=== PATIENT | male | born 1975 | race African-American/Black ===

== ENCOUNTER 2019-01-18 21:38 | Inpatient (IN) ==
[2019-01-18] MEDS ORDERED: FUROSEMIDE 40 MG/4 ML VIAL IV STA (22:27)
[2019-01-18 22:47] LABS: Basophils % 0.2 % (0.0-0.8); Hematocrit 36.3 VOL% (42.0-52.0); Hemoglobin 11.2 GM/DL (14.0-18.0); Immature Granulocytes % 1.5 %; Immature Granulocytes Absolute 0.16 #; Lymphocytes # 1.9 10*3/uL (1.4-4.0); Lymphocytes % 17.6 % (21.2-54.2); Mean Corpuscular HGB Conc 30.9 GM/DL (32-36); Mean Corpuscular Hemoglobin 29 PG (27-34); Mean Corpuscular Volume 92.4 FL (87-102); Mean Platelet Volume 12.3 FL (9.6-12.0); Monocytes # 0.3 10*3/uL (0.11-0.8); Neutrophils # 8.4 10*3/uL (1.4-7.4); Neutrophils % 77.7 % (38.7-73.9); Platelet Count 103 T/CUMM (130-400); Red Blood Count 3.93 MC/CUMM (3.8-5.5); Red Cell Distribution Width 13.7 % (9.3-17.3); White Blood Count 10.9 T/CUMM (4-12)
[2019-01-18 22:52] LABS: Alanine Aminotransferase 169 U/L (16-61); Albumin 2.2 G/DL (3.4-5.0); Alkaline Phosphatase 105 U/L (45-117); Aspartate Amino Transferase 182 U/L (0-37); Blood Urea Nitrogen 30 MG/DL (7-18); Calcium 8.9 MG/DL (8.5-10.1); Glucose 334 MG/DL (74-106); INR 1.1; Osmolality,Calculated 304.8 MOS/KG (273-304); Potassium 3.5 MMOL/L (3.5-5.1); Sodium 144 MMOL/L (136-145); Total Protein 6.2 G/DL (6.4-8.3)
[2019-01-18 22:55] LABS: Troponin I 0.062 NG/ML (0.00-0.045)
[2019-01-18 22:55] LABS: ABG Base Excess -4.1 MMOL/L (-2.5-2.5); ABG HCO3 20.9 MMOL/L (20-26); ABG Oxygen Saturation 89.7 % (95-100); ABG PCO2 53.3 MM HG (35-48); ABG PH 7.259 (7.35-7.45); ABG PO2 69.4 MM HG (80-95); ABG TCO2 21.3 MMOL/L (23-27); Allen Test Positive; Pt O2 Delivery Device Ventilator
[2019-01-18] MEDS ORDERED: PHENYLEPHRINE DRIP 40 MG/250 ML PREMIX IV ONE (23:07)
[2019-01-18] MEDS ORDERED: VECURONIUM 10 MG VIAL IV ONE (23:13)
[2019-01-18] MEDS ORDERED: ETOMIDATE 20 MG/10 ML VIAL IV ONE (23:13)
[2019-01-18] MEDS ORDERED: PHENYLEPHRINE DRIP 40 MG/250 ML PREMIX IV PRN (23:13)
[2019-01-18] MEDS ORDERED: FUROSEMIDE 100 MG/10 ML VIAL ONE (23:15)
[2019-01-18] MEDS ORDERED: ROCURONIUM 100 MG/10 ML VIAL IV ONE (23:18)
[2019-01-18] MEDS ORDERED: HEPARIN 1,000 UNIT/1 ML VIAL IV STA (23:30)
[2019-01-18] MEDS ORDERED: HEPARIN 5,000 UNIT/1 ML VIAL ONE (23:31)
[2019-01-18] MEDS ORDERED: VECURONIUM 10 MG VIAL IV STA (23:50)
[2019-01-19] MEDS ORDERED: ONDANSETRON 4 MG/2 ML VIAL IV PRN (00:10)
[2019-01-19] MEDS ORDERED: NOREPINEPHRINE 4 MG/4 ML VIAL IV ONE (00:19)
[2019-01-19] MEDS ORDERED: NOREPINEPHRINE 8 MG in SODIUM CHLORIDE 0.9% 242 ML IV PRN (00:25)
[2019-01-19] MEDS ORDERED: HEPARIN DRIP 25,000 UNITS/500 ML PREMIX IV SCH (00:30)
[2019-01-19] MEDS ORDERED: EPINEPHrine 1 MG/ML VIAL ONE (00:58)
[2019-01-19] MEDS: PROPOFOL 1,000 MG/100 ML BOTTLE IV SCH ×2 (03:05→14:11)
[2019-01-19] MEDS: fentaNYL INJ 1,250 MCG in SODIUM CHLORIDE 0.9% 225 ML IV PRN ×2 (03:05→16:19)
[2019-01-19] MEDS: CISATRACURIUM 200 MG in SODIUM CHLORIDE 0.9% 180 ML IV SCH (03:05)
[2019-01-19 03:20] LABS: Basophils % 0.2 % (0.0-0.8); Hemoglobin 13.4 GM/DL (14.0-18.0); Immature Granulocytes % 1.1 %; Immature Granulocytes Absolute 0.19 #; Lymphocytes # 1.2 10*3/uL (1.4-4.0); Lymphocytes % 7.1 % (21.2-54.2); Mean Corpuscular HGB Conc 30.5 GM/DL (32-36); Mean Corpuscular Hemoglobin 28 PG (27-34); Mean Corpuscular Volume 92.4 FL (87-102); Monocytes # 1.1 10*3/uL (0.11-0.8); Monocytes % 6.3 % (1.7-12.7); Neutrophils # 14.8 10*3/uL (1.4-7.4); Neutrophils % 85.3 % (38.7-73.9); Platelet Count 140 T/CUMM (130-400); Red Blood Count 4.76 MC/CUMM (3.8-5.5); White Blood Count 17.4 T/CUMM (4-12)
[2019-01-19 03:22] LABS: ABG Base Excess -4.6 MMOL/L (-2.5-2.5); ABG HCO3 20.5 MMOL/L (20-26); ABG Oxygen Saturation 87.5 % (95-100); ABG PCO2 52.3 MM HG (35-48); ABG PH 7.258 (7.35-7.45); ABG PO2 63.5 MM HG (80-95); ABG TCO2 20.8 MMOL/L (23-27); Allen Test Positive; Pt O2 Delivery Device Ventilator
[2019-01-19 03:30] LABS: INR 1.1; PT Patient Result 11.9 SECS; Partial Thromboplastin Time 29.2 SECS (0-40)
[2019-01-19 03:42] LABS: Amylase 159 U/L (25-115)
[2019-01-19 03:44] LABS: ABG Base Excess -4.7 MMOL/L (-2.5-2.5); ABG HCO3 20.6 MMOL/L (20-26); ABG Oxygen Saturation 97.5 % (95-100); ABG PCO2 46.9 MM HG (35-48); ABG PH 7.285 (7.35-7.45); ABG TCO2 19.8 MMOL/L (23-27)
[2019-01-19 03:48] LABS: Troponin I 0.722 NG/ML (0.00-0.045)
[2019-01-19 03:49] LABS: Albumin 2.7 G/DL (3.4-5.0); Osmolality,Calculated 298.7 MOS/KG (273-304); Thyroid Stimulating Hormone 1.33 uIU/ml (0.358-3.74); Total Protein 7.3 G/DL (6.4-8.3)
[2019-01-19] MEDS ORDERED: INSULIN REGULAR 100 UNIT/ML IV ONE (03:59)
[2019-01-19] MEDS ORDERED: SODIUM BICARBONATE 50 MEQ/50 ML VIAL IV ONE (03:59)
[2019-01-19] MEDS ORDERED: DEXTROSE 50% 25 GM/50 ML SYRINGE IV PRN (04:00)
[2019-01-19] MEDS ORDERED: CALCIUM GLUCONATE 1,000 MG in SODIUM CHLORIDE 0.9% 100 ML IV ONE (04:00)
[2019-01-19] MEDS ORDERED: DEXTROSE 50% 25 GM/50 ML SYRINGE IV ONE (04:14)
[2019-01-19] MEDS ORDERED: SODIUM CHLORIDE 0.9% 1,000 ML IV ONE (05:15)
[2019-01-19 05:52] LABS: ABG Base Excess -1.7 MMOL/L (-2.5-2.5); ABG Oxygen Saturation 98.7 % (95-100); ABG PCO2 50.1 MM HG (35-48); ABG PH 7.311 (7.35-7.45); ABG TCO2 22.4 MMOL/L (23-27)
[2019-01-19 05:55] LABS: INR 1.1; Partial Thromboplastin Time 27.2 SECS (0-40)
[2019-01-19 06:17] LABS: Barbiturates Screen,Urine Negative (Negative); Benzodiazepines Screen,Urine Negative (Negative); Cannabinoid Screen,Urine Negative (Negative); Opiate Screen,Urine Negative (Negative); Phencyclidine Screen,Urine Negative (Negative)
[2019-01-19 06:18] LABS: Apearance,Urine CLOUDY (Clear); Bilirubin,Urine Negative (Negative); Blood, Urine Moderate mg/dL (Negative); Glucose,Urine (UA) >=500 mg/dL (Negative); Granular Casts,Urine 5 /LPF (0-1); Hyaline Casts,Urine 16 /LPF (0-3); Ketones,Urine Negative (Negative); Mucus,Urine Occasional /LPF (Occasional); Nitrite,Urine Negative (Negative); Protein,Urine 100 MG/DL; RBC,Urine 13 /HPF (0-4); Squamous Epithelial Cell,Urine Occasional /HPF (0-10); Urine Color Yellow (Yellow); Urine Specific Gravity 1.015 (1.001-1.035); WBC,Urine 26 /HPF (0-6)
[2019-01-19] MEDS: INSULIN REGULAR 100 UNIT/ML IV SCH ×3 (06:25→18:40)
[2019-01-19] MEDS ORDERED: SODIUM CHLORIDE 0.9% 1,000 ML IV SCH (06:30)
[2019-01-19] MEDS ORDERED: INSULIN REGULAR DRIP 100 ML IV PRN (07:13)
[2019-01-19] MEDS: MINERAL OIL/PETROLATUM OPH OINT 3.5 GM TUBE BOTH EYES SCH ×3 (09:41→21:27)
[2019-01-19] MEDS: PANTOPRAZOLE 40 MG VIAL IV SCH (09:45)
[2019-01-19 09:46] LABS: Basophils # 0.1 10*3/uL (0.0-0.2); Basophils % 0.3 % (0.0-0.8); Hematocrit 38.6 VOL% (42.0-52.0); Hemoglobin 12.1 GM/DL (14.0-18.0); Immature Granulocytes % 0.7 %; Immature Granulocytes Absolute 0.11 #; Lymphocytes # 1.3 10*3/uL (1.4-4.0); Lymphocytes % 7.9 % (21.2-54.2); Mean Corpuscular HGB Conc 31.3 GM/DL (32-36); Mean Corpuscular Hemoglobin 28 PG (27-34); Mean Corpuscular Volume 89.4 FL (87-102); Mean Platelet Volume 13.1 FL (9.6-12.0); Monocytes # 1.1 10*3/uL (0.11-0.8); Monocytes % 6.5 % (1.7-12.7); Neutrophils # 13.6 10*3/uL (1.4-7.4); Neutrophils % 84.6 % (38.7-73.9); Platelet Count 117 T/CUMM (130-400); Red Blood Count 4.32 MC/CUMM (3.8-5.5); White Blood Count 16.1 T/CUMM (4-12)
[2019-01-19 09:55] LABS: INR 1.1; PT Patient Result 11.8 SECS; Partial Thromboplastin Time 25.5 SECS (0-40)
[2019-01-19 10:14] LABS: CKMB % 3.1 %; Calcium 8.1 MG/DL (8.5-10.1); Osmolality,Calculated 307.3 MOS/KG (273-304)
[2019-01-19 10:19] LABS: Troponin I 1.57 NG/ML (0.00-0.045)
[2019-01-19] MEDS: SODIUM BICARB INJ 150 MEQ in STERILE WATER INJ 850 ML IV SCH ×2 (13:42→22:02)
[2019-01-19 15:22] LABS: Basophils % 0.1 % (0.0-0.8); Hematocrit 37.8 VOL% (42.0-52.0); Hemoglobin 12.2 GM/DL (14.0-18.0); Immature Granulocytes % 0.6 %; Immature Granulocytes Absolute 0.09 #; Lymphocytes # 1.2 10*3/uL (1.4-4.0); Lymphocytes % 7.8 % (21.2-54.2); Mean Corpuscular HGB Conc 32.3 GM/DL (32-36); Mean Corpuscular Hemoglobin 28 PG (27-34); Mean Corpuscular Volume 87.5 FL (87-102); Mean Platelet Volume 13.1 FL (9.6-12.0); Monocytes # 0.6 10*3/uL (0.11-0.8); Monocytes % 3.7 % (1.7-12.7); Neutrophils # 13.3 10*3/uL (1.4-7.4); Neutrophils % 87.8 % (38.7-73.9); Platelet Count 111 T/CUMM (130-400); Red Blood Count 4.32 MC/CUMM (3.8-5.5); White Blood Count 15.1 T/CUMM (4-12)
[2019-01-19 15:32] LABS: INR 1.1; PT Patient Result 11.7 SECS; Partial Thromboplastin Time 25.1 SECS (0-40)
[2019-01-19 15:45] LABS: Blood Urea Nitrogen 43 MG/DL (7-18); CKMB % 3.9 %; Calcium 8.4 MG/DL (8.5-10.1); Glucose 291 MG/DL (74-106); Osmolality,Calculated 304.1 MOS/KG (273-304); Potassium 3.5 MMOL/L (3.5-5.1); Sodium 142 MMOL/L (136-145)
[2019-01-19] MEDS ORDERED: POTASSIUM CHLORIDE RIDER 20 MEQ in PREMIX 1 EACH IV ONE (16:21)
[2019-01-19] MEDS ORDERED: ENOXAPARIN 30 MG/0.3 ML SYRINGE SUBCUT SCH (16:30)
[2019-01-19] MEDS: miSOPROStol 200 MCG TABLET PO SCH ×2 (16:44→21:26)
[2019-01-19] MEDS: MEROPENEM 1,000 MG in SODIUM CHLORIDE 0.9% 100 ML IV SCH (17:02)
[2019-01-19] MEDS ORDERED: hydrALAZINE 20 MG/1 ML VIAL IV ONE (20:39)
[2019-01-19] MEDS ORDERED: LORazepam 2 MG/1 ML VIAL IV PRN (20:40)
[2019-01-19 21:31] LABS: Basophils % 0.1 % (0.0-0.8); Hematocrit 38.7 VOL% (42.0-52.0); Hemoglobin 12.3 GM/DL (14.0-18.0); Immature Granulocytes % 0.4 %; Immature Granulocytes Absolute 0.05 #; Lymphocytes % 8.2 % (21.2-54.2); Mean Corpuscular HGB Conc 31.8 GM/DL (32-36); Mean Corpuscular Hemoglobin 28 PG (27-34); Mean Platelet Volume 12.8 FL (9.6-12.0); Monocytes # 0.4 10*3/uL (0.11-0.8); Monocytes % 3.6 % (1.7-12.7); Neutrophils # 10.6 10*3/uL (1.4-7.4); Neutrophils % 87.7 % (38.7-73.9); Platelet Count 128 T/CUMM (130-400); Red Cell Distribution Width 14.1 % (9.3-17.3); White Blood Count 12.1 T/CUMM (4-12)
[2019-01-19 21:39] LABS: INR 1.1; PT Patient Result 12.3 SECS; Partial Thromboplastin Time 28.2 SECS (0-40)
[2019-01-19 21:52] LABS: Blood Urea Nitrogen 43 MG/DL (7-18); CKMB % 4.5 %; Calcium 8.8 MG/DL (8.5-10.1); Glucose 97 MG/DL (74-106); Osmolality,Calculated 296.8 MOS/KG (273-304); Sodium 144 MMOL/L (136-145)
[2019-01-20 02:11] LABS: Basophils % 0.2 % (0.0-0.8); Hematocrit 39.9 VOL% (42.0-52.0); Hemoglobin 12.8 GM/DL (14.0-18.0); Immature Granulocytes % 0.4 %; Immature Granulocytes Absolute 0.06 #; Lymphocytes # 1.2 10*3/uL (1.4-4.0); Lymphocytes % 8.4 % (21.2-54.2); Mean Corpuscular HGB Conc 32.1 GM/DL (32-36); Mean Corpuscular Hemoglobin 28 PG (27-34); Mean Corpuscular Volume 87.5 FL (87-102); Mean Platelet Volume 12.8 FL (9.6-12.0); Monocytes # 0.8 10*3/uL (0.11-0.8); Neutrophils # 11.7 10*3/uL (1.4-7.4); Platelet Count 130 T/CUMM (130-400); Red Blood Count 4.56 MC/CUMM (3.8-5.5); Red Cell Distribution Width 14.1 % (9.3-17.3); White Blood Count 13.8 T/CUMM (4-12)
[2019-01-20 02:31] LABS: CKMB % 4.4 %; Calcium 8.6 MG/DL (8.5-10.1); Osmolality,Calculated 298.7 MOS/KG (273-304); Potassium 3.2 MMOL/L (3.5-5.1)
[2019-01-20 02:33] LABS: Troponin I 1.36 NG/ML (0.00-0.045)
[2019-01-20] MEDS ORDERED: SODIUM CHLORIDE 0.9% 1,000 ML IV ONE (02:43)
[2019-01-20] MEDS: PROPOFOL 1,000 MG/100 ML BOTTLE IV SCH ×2 (02:55→06:12)
[2019-01-20] MEDS: CISATRACURIUM 200 MG in SODIUM CHLORIDE 0.9% 180 ML IV SCH (02:56)
[2019-01-20] MEDS: fentaNYL INJ 1,250 MCG in SODIUM CHLORIDE 0.9% 225 ML IV PRN (03:30)
[2019-01-20 03:55] LABS: ABG Base Excess 7.2 MMOL/L (-2.5-2.5); ABG Oxygen Saturation 99.8 % (95-100); ABG PCO2 42.2 MM HG (35-48); ABG TCO2 27.5 MMOL/L (23-27)
[2019-01-20 04:22] LABS: INR 1.2; PT Patient Result 12.5 SECS; Partial Thromboplastin Time 27.9 SECS (0-40)
[2019-01-20 04:33] LABS: % Iron Saturation 9.7 % (18-50); Uric Acid 10.7 MG/DL (3.5-7.2)
[2019-01-20] MEDS: MEROPENEM 1,000 MG in SODIUM CHLORIDE 0.9% 100 ML IV SCH ×2 (05:23→16:29)
[2019-01-20 06:11] LABS: Parathyroid Hormone Intact 751.2 PG/ML (18.4-80.1)
[2019-01-20] MEDS: SODIUM BICARB INJ 150 MEQ in STERILE WATER INJ 850 ML IV SCH (06:12)
[2019-01-20] MEDS: PANTOPRAZOLE 40 MG VIAL IV SCH (08:41)
[2019-01-20] MEDS: STERILE WATER IV SCH ×2 (08:42→16:40)
[2019-01-20] MEDS: POTASSIUM CHLORIDE IV SCH ×2 (08:42→16:40)
[2019-01-20] MEDS: MINERAL OIL/PETROLATUM OPH OINT 3.5 GM TUBE BOTH EYES SCH ×2 (08:42→16:30)
[2019-01-20] MEDS: SODIUM BICARB IV SCH ×2 (08:42→16:40)
[2019-01-20] MEDS: ALLOPURINOL 300 MG TABLET PO SCH (08:42)
[2019-01-20] MEDS: IRON SUCROSE 200 MG in SODIUM CHLORIDE 0.9% 100 ML IV SCH (08:43)
[2019-01-20 12:34] LABS: Basophils % 0.1 % (0.0-0.8); Hematocrit 39.9 VOL% (42.0-52.0); Hemoglobin 12.7 GM/DL (14.0-18.0); Immature Granulocytes % 0.8 %; Immature Granulocytes Absolute 0.12 #; Lymphocytes # 0.7 10*3/uL (1.4-4.0); Lymphocytes % 5.2 % (21.2-54.2); Mean Corpuscular HGB Conc 31.8 GM/DL (32-36); Mean Corpuscular Hemoglobin 28 PG (27-34); Mean Corpuscular Volume 88.9 FL (87-102); Mean Platelet Volume 13.2 FL (9.6-12.0); Monocytes # 0.8 10*3/uL (0.11-0.8); Monocytes % 5.6 % (1.7-12.7); Neutrophils # 12.6 10*3/uL (1.4-7.4); Neutrophils % 88.3 % (38.7-73.9); Platelet Count 133 T/CUMM (130-400); Red Blood Count 4.49 MC/CUMM (3.8-5.5); Red Cell Distribution Width 14.3 % (9.3-17.3); White Blood Count 14.3 T/CUMM (4-12)
[2019-01-20 12:44] LABS: INR 1.1; Partial Thromboplastin Time 27.5 SECS (0-40)
[2019-01-20] MEDS: INSULIN LISPRO 100 UNIT/ML SUBCUT SCH ×3 (12:56→21:40)
[2019-01-20 13:00] LABS: Blood Urea Nitrogen 50 MG/DL (7-18); CKMB % 3.1 %; Calcium 7.9 MG/DL (8.5-10.1); Glucose 206 MG/DL (74-106); Osmolality,Calculated 301.1 MOS/KG (273-304); Potassium 3.8 MMOL/L (3.5-5.1); Sodium 142 MMOL/L (136-145)
[2019-01-20 13:01] LABS: Troponin I 0.926 NG/ML (0.00-0.045)
[2019-01-20 16:00] LABS: INR 1.1; PT Patient Result 11.9 SECS; Partial Thromboplastin Time 26.9 SECS (0-40)
[2019-01-20] MEDS: INSULIN NPH/REGULAR 70/30 100 UNIT/ML SUBCUT SCH (16:27)
[2019-01-20] MEDS: ENOXAPARIN 40 MG/0.4 ML SYRINGE SUBCUT SCH (16:29)
[2019-01-20] MEDS: miSOPROStol 200 MCG TABLET PO SCH (19:09)
[2019-01-21] MEDS: INSULIN LISPRO 100 UNIT/ML SUBCUT SCH ×6 (00:34→21:08)
[2019-01-21 00:45] LABS: INR 1.1
[2019-01-21] MEDS: POTASSIUM CHLORIDE IV SCH ×2 (01:01→12:38)
[2019-01-21] MEDS: SODIUM BICARB IV SCH ×2 (01:01→12:38)
[2019-01-21] MEDS: STERILE WATER IV SCH ×2 (01:01→12:38)
[2019-01-21] MEDS: CISATRACURIUM 200 MG in SODIUM CHLORIDE 0.9% 180 ML IV SCH (02:38)
[2019-01-21 05:11] LABS: Basophils % 0.2 % (0.0-0.8); Hematocrit 37.3 VOL% (42.0-52.0); Hemoglobin 11.6 GM/DL (14.0-18.0); Immature Granulocytes % 0.4 %; Immature Granulocytes Absolute 0.05 #; Lymphocytes # 1.7 10*3/uL (1.4-4.0); Lymphocytes % 13.7 % (21.2-54.2); Mean Corpuscular HGB Conc 31.1 GM/DL (32-36); Mean Corpuscular Hemoglobin 28 PG (27-34); Mean Corpuscular Volume 90.8 FL (87-102); Mean Platelet Volume 13.4 FL (9.6-12.0); Monocytes # 1.3 10*3/uL (0.11-0.8); Monocytes % 9.9 % (1.7-12.7); Neutrophils # 9.6 10*3/uL (1.4-7.4); Neutrophils % 75.8 % (38.7-73.9); Platelet Count 144 T/CUMM (130-400); Red Blood Count 4.11 MC/CUMM (3.8-5.5); Red Cell Distribution Width 14.6 % (9.3-17.3); White Blood Count 12.6 T/CUMM (4-12)
[2019-01-21 05:26] LABS: Calcium 7.2 MG/DL (8.5-10.1); Osmolality,Calculated 302.7 MOS/KG (273-304); Potassium 4.1 MMOL/L (3.5-5.1)
[2019-01-21] MEDS: MEROPENEM 1,000 MG in SODIUM CHLORIDE 0.9% 100 ML IV SCH ×2 (06:33→17:05)
[2019-01-21] MEDS: INSULIN NPH/REGULAR 70/30 100 UNIT/ML SUBCUT SCH ×2 (07:55→17:02)
[2019-01-21] MEDS: PANTOPRAZOLE 40 MG VIAL IV SCH (08:17)
[2019-01-21] MEDS: CALCITRIOL 0.5 MCG CAPSULE PO SCH (08:18)
[2019-01-21] MEDS: ALLOPURINOL 300 MG TABLET PO SCH (08:18)
[2019-01-21] MEDS: SODIUM CHLORIDE 0.45% 1,000 ML IV SCH ×2 (08:26→18:49)
[2019-01-21] MEDS: IRON SUCROSE 200 MG in SODIUM CHLORIDE 0.9% 100 ML IV SCH (08:40)
[2019-01-21] MEDS: CARVEDILOL 6.25 MG TABLET PO SCH ×2 (08:48→21:08)
[2019-01-21] MEDS ORDERED: MAGNESIUM SULF RIDER 1 GM in PREMIX 1 EACH IV ONE (09:00)
[2019-01-21] MEDS ORDERED: MAGNESIUM SULF RIDER 2 GM in PREMIX 1 EACH IV ONE (09:03)
[2019-01-21] MEDS: PANTOPRAZOLE 40 MG TABLET PO SCH (09:27)
[2019-01-21] MEDS: ENOXAPARIN 40 MG/0.4 ML SYRINGE SUBCUT SCH (17:05)
[2019-01-22 04:47] LABS: Basophils % 0.4 % (0.0-0.8); Eosinophils % 0.3 % (0.00-10.9); Hematocrit 34.3 VOL% (42.0-52.0); Hemoglobin 10.5 GM/DL (14.0-18.0); Immature Granulocytes % 0.4 %; Immature Granulocytes Absolute 0.03 #; Lymphocytes # 1.6 10*3/uL (1.4-4.0); Lymphocytes % 21.1 % (21.2-54.2); Mean Corpuscular HGB Conc 30.6 GM/DL (32-36); Mean Corpuscular Hemoglobin 28 PG (27-34); Mean Corpuscular Volume 92.7 FL (87-102); Mean Platelet Volume 13.6 FL (9.6-12.0); Monocytes # 0.9 10*3/uL (0.11-0.8); Monocytes % 12.2 % (1.7-12.7); Neutrophils % 65.6 % (38.7-73.9); Red Cell Distribution Width 14.3 % (9.3-17.3); White Blood Count 7.6 T/CUMM (4-12)
[2019-01-22] MEDS: MEROPENEM 1,000 MG in SODIUM CHLORIDE 0.9% 100 ML IV SCH ×2 (04:58→17:08)
[2019-01-22 05:09] LABS: Platelet Count 102 T/CUMM (130-400)
[2019-01-22 05:11] LABS: Albumin 2.4 G/DL (3.4-5.0); Bilirubin,Total 0.6 MG/DL (0.2-1.0); Calcium 7.1 MG/DL (8.5-10.1); Osmolality,Calculated 293.1 MOS/KG (273-304); Potassium 3.9 MMOL/L (3.5-5.1); Total Protein 6.3 G/DL (6.4-8.3)
[2019-01-22 06:01] LABS: Hypochromasia 1+; Platelet Estimate Decreased
[2019-01-22] MEDS: INSULIN NPH/REGULAR 70/30 100 UNIT/ML SUBCUT SCH ×2 (08:42→17:04)
[2019-01-22] MEDS: CALCITRIOL 0.5 MCG CAPSULE PO SCH (08:45)
[2019-01-22] MEDS: CARVEDILOL 6.25 MG TABLET PO SCH ×2 (08:45→21:31)
[2019-01-22] MEDS: PANTOPRAZOLE 40 MG TABLET PO SCH (08:45)
[2019-01-22] MEDS: INSULIN LISPRO 100 UNIT/ML SUBCUT SCH ×4 (08:46→21:32)
[2019-01-22] MEDS: SODIUM CHLORIDE 0.45% 1,000 ML IV SCH (08:47)
[2019-01-22] MEDS: IRON SUCROSE 200 MG in SODIUM CHLORIDE 0.9% 100 ML IV SCH (09:53)
[2019-01-22] MEDS: ALLOPURINOL 300 MG TABLET PO SCH (09:53)
[2019-01-22] MEDS ORDERED: FUROSEMIDE 40 MG/4 ML VIAL IV ONE (10:48)
[2019-01-22] MEDS ORDERED: MAGNESIUM SULF RIDER 2 GM in PREMIX 1 EACH IV PRN (14:40)
[2019-01-22] MEDS ORDERED: POTASSIUM CHLORIDE RIDER 10 MEQ in PREMIX 1 EACH IV PRN (14:40)
[2019-01-22] MEDS: ENOXAPARIN 40 MG/0.4 ML SYRINGE SUBCUT SCH (17:03)
[2019-01-23] MEDS: SODIUM CHLORIDE 0.45% 1,000 ML IV SCH ×3 (02:27→19:10)
[2019-01-23] MEDS: MEROPENEM 1,000 MG in SODIUM CHLORIDE 0.9% 100 ML IV SCH (04:51)
[2019-01-23 06:12] LABS: Calcium 7.6 MG/DL (8.5-10.1); Osmolality,Calculated 292.8 MOS/KG (273-304); Potassium 3.8 MMOL/L (3.5-5.1)
[2019-01-23] MEDS: CARVEDILOL 6.25 MG TABLET PO SCH ×3 (07:45→21:06)
[2019-01-23] MEDS: PANTOPRAZOLE 40 MG TABLET PO SCH ×2 (07:46→09:57)
[2019-01-23] MEDS: INSULIN NPH/REGULAR 70/30 100 UNIT/ML SUBCUT SCH ×2 (07:47→16:34)
[2019-01-23] MEDS: INSULIN LISPRO 100 UNIT/ML SUBCUT SCH ×4 (07:47→21:06)
[2019-01-23] MEDS ORDERED: HEPARIN/NACL 0.9% 2 UNITS/ML 1,000 ML IV ONE (07:48)
[2019-01-23] MEDS ORDERED: diphenhydrAMINE CAP 25 MG CAPSULE PO ONE (08:00)
[2019-01-23] MEDS ORDERED: DIAZEPAM 5 MG TABLET PO ONE (08:00)
[2019-01-23] MEDS: ASPIRIN EC 81 MG TABLET PO SCH (08:01)
[2019-01-23 08:13] LABS: Basophils % 0.5 % (0.0-0.8); Eosinophils # 0.1 10*3/uL (0.0-0.87); Eosinophils % 1.6 % (0.00-10.9); Hematocrit 35.9 VOL% (42.0-52.0); Hemoglobin 10.9 GM/DL (14.0-18.0); Immature Granulocytes % 0.5 %; Immature Granulocytes Absolute 0.04 #; Lymphocytes # 1.6 10*3/uL (1.4-4.0); Lymphocytes % 19.3 % (21.2-54.2); Mean Corpuscular HGB Conc 30.4 GM/DL (32-36); Mean Corpuscular Hemoglobin 28 PG (27-34); Mean Corpuscular Volume 93.2 FL (87-102); Monocytes # 0.9 10*3/uL (0.11-0.8); Monocytes % 11.2 % (1.7-12.7); Neutrophils # 5.4 10*3/uL (1.4-7.4); Neutrophils % 66.9 % (38.7-73.9); Platelet Count 103 T/CUMM (130-400); Red Blood Count 3.85 MC/CUMM (3.8-5.5); Red Cell Distribution Width 13.8 % (9.3-17.3)
[2019-01-23] MEDS ORDERED: LIDOCAINE 1% 20 ML VIAL ONE (08:24)
[2019-01-23] MEDS ORDERED: MIDAZOLAM 2 MG/2 ML VIAL ONE (08:25)
[2019-01-23] MEDS ORDERED: LIDOCAINE 1%/EPI INJ 20 ML VIAL ONE (08:25)
[2019-01-23] MEDS ORDERED: fentaNYL 100 MCG/2 ML VIAL ONE (08:25)
[2019-01-23] MEDS ORDERED: ASPIRIN EC 81 MG TABLET PO SCH (09:00)
[2019-01-23] MEDS ORDERED: ADENOSINE 90 MG/30 ML VIAL IV ONE (09:01)
[2019-01-23] MEDS ORDERED: ENOXAPARIN 60 MG/0.6 ML SYRINGE ONE (09:05)
[2019-01-23] MEDS: CALCITRIOL 0.5 MCG CAPSULE PO SCH (09:56)
[2019-01-23] MEDS: ALLOPURINOL 300 MG TABLET PO SCH (09:57)
[2019-01-23] MEDS: FUROSEMIDE 40 MG/4 ML VIAL IV SCH (11:02)
[2019-01-23] MEDS: IRON SUCROSE 200 MG in SODIUM CHLORIDE 0.9% 100 ML IV SCH (11:06)
[2019-01-23] MEDS: cefTRIAXone 2,000 MG in SYRINGE 1 EACH IV SCH (11:40)
[2019-01-23] MEDS: ENOXAPARIN 40 MG/0.4 ML SYRINGE SUBCUT SCH (16:35)
[2019-01-23] MEDS: ATORVASTATIN 80 MG TABLET PO SCH (21:06)
[2019-01-24] MEDS: SODIUM CHLORIDE 0.45% 1,000 ML IV SCH ×2 (03:00→14:36)
[2019-01-24 04:25] LABS: Basophils # 0.1 10*3/uL (0.0-0.2); Basophils % 0.6 % (0.0-0.8); Eosinophils # 0.2 10*3/uL (0.0-0.87); Eosinophils % 2.3 % (0.00-10.9); Hematocrit 36.9 VOL% (42.0-52.0); Hemoglobin 11.4 GM/DL (14.0-18.0); Immature Granulocytes % 0.4 %; Immature Granulocytes Absolute 0.03 #; Lymphocytes # 1.8 10*3/uL (1.4-4.0); Lymphocytes % 22.5 % (21.2-54.2); Mean Corpuscular HGB Conc 30.9 GM/DL (32-36); Mean Corpuscular Hemoglobin 28 PG (27-34); Mean Platelet Volume 12.9 FL (9.6-12.0); Monocytes # 0.8 10*3/uL (0.11-0.8); Monocytes % 10.3 % (1.7-12.7); Neutrophils # 5.1 10*3/uL (1.4-7.4); Neutrophils % 63.9 % (38.7-73.9); Platelet Count 119 T/CUMM (130-400); Red Blood Count 4.01 MC/CUMM (3.8-5.5); Red Cell Distribution Width 13.5 % (9.3-17.3)
[2019-01-24 04:52] LABS: Calcium 8.2 MG/DL (8.5-10.1); Osmolality,Calculated 289.4 MOS/KG (273-304); Potassium 4.8 MMOL/L (3.5-5.1)
[2019-01-24] MEDS: CALCITRIOL 0.5 MCG CAPSULE PO SCH (08:32)
[2019-01-24] MEDS: PANTOPRAZOLE 40 MG TABLET PO SCH (08:33)
[2019-01-24] MEDS: CARVEDILOL 6.25 MG TABLET PO SCH ×2 (08:33→17:03)
[2019-01-24] MEDS: LOSARTAN 25 MG TABLET PO SCH (08:33)
[2019-01-24] MEDS: ALLOPURINOL 300 MG TABLET PO SCH (08:33)
[2019-01-24] MEDS: ASPIRIN EC 81 MG TABLET PO SCH (08:34)
[2019-01-24] MEDS: INSULIN NPH/REGULAR 70/30 100 UNIT/ML SUBCUT SCH ×2 (08:35→16:55)
[2019-01-24] MEDS: INSULIN LISPRO 100 UNIT/ML SUBCUT SCH ×4 (08:36→21:13)
[2019-01-24] MEDS: FUROSEMIDE 40 MG/4 ML VIAL IV SCH (08:37)
[2019-01-24] MEDS: IRON SUCROSE 200 MG in SODIUM CHLORIDE 0.9% 100 ML IV SCH (08:45)
[2019-01-24] MEDS ORDERED: CARVEDILOL 6.25 MG TABLET PO SCH (11:12)
[2019-01-24] MEDS ORDERED: NITROGLYCERIN SL 0.4 MG TABLET SL PRN (11:12)
[2019-01-24] MEDS: cefTRIAXone 2,000 MG in SYRINGE 1 EACH IV SCH (11:15)
[2019-01-24] MEDS: ENOXAPARIN 40 MG/0.4 ML SYRINGE SUBCUT SCH (16:56)
[2019-01-24] MEDS: ATORVASTATIN 80 MG TABLET PO SCH (21:13)
[2019-01-25 05:07] LABS: Basophils % 0.6 % (0.0-0.8); Eosinophils # 0.2 10*3/uL (0.0-0.87); Eosinophils % 2.6 % (0.00-10.9); Hematocrit 36.4 VOL% (42.0-52.0); Hemoglobin 11.5 GM/DL (14.0-18.0); Immature Granulocytes % 0.3 %; Immature Granulocytes Absolute 0.02 #; Lymphocytes # 1.8 10*3/uL (1.4-4.0); Lymphocytes % 27.5 % (21.2-54.2); Mean Corpuscular HGB Conc 31.6 GM/DL (32-36); Mean Corpuscular Hemoglobin 29 PG (27-34); Mean Corpuscular Volume 90.1 FL (87-102); Mean Platelet Volume 12.2 FL (9.6-12.0); Neutrophils # 3.4 10*3/uL (1.4-7.4); Platelet Count 68 T/CUMM (130-400); Red Blood Count 4.04 MC/CUMM (3.8-5.5); Red Cell Distribution Width 13.3 % (9.3-17.3); White Blood Count 6.5 T/CUMM (4-12)
[2019-01-25 05:31] LABS: Calcium 8.6 MG/DL (8.5-10.1); Osmolality,Calculated 286.5 MOS/KG (273-304); Potassium 4.1 MMOL/L (3.5-5.1)
[2019-01-25 05:38] LABS: Eosinophils 1 % (0-10); Hypochromasia 1+; Lymphocytes 21 % (20-55); Segmented Neutrophils 65 % (50-85); Total Cells Counted 100
[2019-01-25] MEDS ORDERED: DEXTROSE 50% 25 GM/50 ML VIAL IV PRN (06:23)
[2019-01-25] MEDS ORDERED: GLUCAGON 1 MG VIAL IM PRN (06:23)
[2019-01-25 06:52] LABS: ABG Base Excess 3.4 MMOL/L (-2.5-2.5); ABG HCO3 27.4 MMOL/L (20-26); ABG Oxygen Saturation 97.4 % (95-100); ABG PCO2 49.7 MM HG (35-48); ABG PH 7.381 (7.35-7.45); ABG PO2 95.5 MM HG (80-95); ABG TCO2 26.2 MMOL/L (23-27); Allen Test Positive; Pt O2 Delivery Device Room Air
[2019-01-25] MEDS ORDERED: CARVEDILOL 12.5 MG TABLET PO SCH (09:43)
[2019-01-25] MEDS: LOSARTAN 25 MG TABLET PO SCH (10:04)
[2019-01-25] MEDS: CALCITRIOL 0.5 MCG CAPSULE PO SCH (10:04)
[2019-01-25] MEDS: ALLOPURINOL 300 MG TABLET PO SCH (10:04)
[2019-01-25] MEDS: PANTOPRAZOLE 40 MG TABLET PO SCH (10:06)
[2019-01-25] MEDS: ASPIRIN EC 81 MG TABLET PO SCH (10:06)
[2019-01-25] MEDS: INSULIN LISPRO 100 UNIT/ML SUBCUT SCH ×4 (10:09→21:54)
[2019-01-25] MEDS: INSULIN NPH/REGULAR 70/30 100 UNIT/ML SUBCUT SCH ×2 (10:10→17:29)
[2019-01-25] MEDS: CARVEDILOL 6.25 MG TABLET PO SCH (10:21)
[2019-01-25] MEDS: CARVEDILOL 12.5 MG TABLET PO SCH ×2 (10:35→17:29)
[2019-01-25] MEDS: FUROSEMIDE 40 MG/4 ML VIAL IV SCH (10:49)
[2019-01-25] MEDS: SODIUM CHLORIDE 0.9% 1,000 ML IV SCH (10:56)
[2019-01-25] MEDS: cefTRIAXone 2,000 MG in SYRINGE 1 EACH IV SCH (12:49)
[2019-01-25] MEDS: CHLORHEXIDINE 0.12% ORAL RINSE 60 ML BOTTLE SWISH/SPIT SCH ×2 (15:18→21:55)
[2019-01-25] MEDS: ENOXAPARIN 40 MG/0.4 ML SYRINGE SUBCUT SCH (17:29)
[2019-01-25] MEDS: CHLORHEXIDINE 4% SOLN 118 ML BOTTLE TOP SCH ×2 (18:12→21:55)
[2019-01-25] MEDS: ATORVASTATIN 80 MG TABLET PO SCH (21:55)
[2019-01-26] MEDS ORDERED: PAPAVERINE 60 MG/2 ML VIAL ONE (04:24)
[2019-01-26] MEDS ORDERED: VANCOMYCIN 1,000 MG VIAL ONE (04:24)
[2019-01-26] MEDS: CHLORHEXIDINE 4% SOLN 118 ML BOTTLE TOP SCH (05:00)
[2019-01-26] MEDS: SODIUM CHLORIDE 0.9% 1,000 ML IV SCH (05:43)
[2019-01-26 05:48] LABS: Basophils % 0.7 % (0.0-0.8); Eosinophils # 0.1 10*3/uL (0.0-0.87); Hematocrit 40.9 VOL% (42.0-52.0); Hemoglobin 12.6 GM/DL (14.0-18.0); Immature Granulocytes % 0.5 %; Immature Granulocytes Absolute 0.03 #; Lymphocytes # 2.1 10*3/uL (1.4-4.0); Lymphocytes % 35.2 % (21.2-54.2); Mean Corpuscular HGB Conc 30.8 GM/DL (32-36); Mean Corpuscular Hemoglobin 28 PG (27-34); Mean Corpuscular Volume 90.9 FL (87-102); Mean Platelet Volume 13.3 FL (9.6-12.0); Monocytes # 0.7 10*3/uL (0.11-0.8); Monocytes % 12.5 % (1.7-12.7); Neutrophils # 2.9 10*3/uL (1.4-7.4); Neutrophils % 49.1 % (38.7-73.9); Platelet Count 123 T/CUMM (130-400); Red Cell Distribution Width 13.4 % (9.3-17.3); White Blood Count 5.9 T/CUMM (4-12)
[2019-01-26] MEDS ORDERED: HEPARIN/NACL 0.9% 2 UNITS/ML 500 ML IV ONE (05:56)
[2019-01-26] MEDS ORDERED: SUFentanil 250 MCG/5 ML AMP ONE (05:57)
[2019-01-26] MEDS ORDERED: AMINOCAPROIC ACID 5,000 MG/20 ML VIAL ONE (05:57)
[2019-01-26] MEDS ORDERED: NITROGLYCERIN DRIP 50 MG/250 ML BOTTLE IV ONE (05:57)
[2019-01-26] MEDS ORDERED: MIDAZOLAM 10 MG/2 ML VIAL ONE (05:58)
[2019-01-26] MEDS ORDERED: DIAZEPAM 5 MG TABLET PO ONE (06:00)
[2019-01-26] MEDS ORDERED: FAMOTIDINE 20 MG TABLET PO ONE (06:00)
[2019-01-26 06:05] LABS: Calcium 8.8 MG/DL (8.5-10.1); Osmolality,Calculated 290.4 MOS/KG (273-304); Potassium 4.8 MMOL/L (3.5-5.1)
[2019-01-26] MEDS ORDERED: NITROPRUSSIDE 50 MG/2 ML VIAL ONE (07:07)
[2019-01-26] MEDS ORDERED: POTASSIUM CHLORIDE RIDER 100 ML IV ONE (07:08)
[2019-01-26] MEDS ORDERED: PHENYLEPHRINE DRIP 40 MG/250 ML PREMIX IV ONE (07:08)
[2019-01-26] MEDS ORDERED: SODIUM BICARBONATE 50 MEQ/50 ML VIAL IV ONE ×2 (07:11→10:40)
[2019-01-26] MEDS ORDERED: CALCIUM CHLORIDE 1,000 MG/10 ML SYRINGE IV ONE (07:12)
[2019-01-26] MEDS ORDERED: ALBUMIN 5% 12.5 GM/250 ML VIAL IV ONE ×2 (07:12→10:41)
[2019-01-26 07:31] LABS: ABG Base Excess 3.1 MMOL/L (-2.5-2.5); ABG HCO3 27.2 MMOL/L (20-26); ABG Oxygen Saturation 99.9 % (95-100); ABG PCO2 41.3 MM HG (35-48); ABG PH 7.433 (7.35-7.45); ABG TCO2 24.3 MMOL/L (23-27); Glucose Heart Surgery 216 MG/DL (74-106); Hematocrit Heart Surgery 37.4 PERCENT (42-52); Hemoglobin Heart Surgery 12.2 G/DL (14.0-18.0); Ionized Calcium Arterial 1.16 MMOL/L (1.21-1.46); PCO2 Patient Temp Arterial 41.3 MMHG; PH Patient Temp Arterial 7.433; Patient Temperature 37 CELCIUS; Sodium Heart/CVR 137 MMOL/L (135-145)
[2019-01-26 07:35] LABS: Potassium Heart/CVR 6.2 MMOL/L (3.5-5.1)
[2019-01-26] MEDS: INSULIN LISPRO 100 UNIT/ML SUBCUT SCH ×2 (08:08→12:44)
[2019-01-26] MEDS: LOSARTAN 25 MG TABLET PO SCH (08:08)
[2019-01-26] MEDS: ASPIRIN EC 81 MG TABLET PO SCH (08:08)
[2019-01-26] MEDS: INSULIN NPH/REGULAR 70/30 100 UNIT/ML SUBCUT SCH (08:08)
[2019-01-26] MEDS: CARVEDILOL 12.5 MG TABLET PO SCH (08:08)
[2019-01-26] MEDS: CALCITRIOL 0.5 MCG CAPSULE PO SCH (08:09)
[2019-01-26] MEDS: ALLOPURINOL 300 MG TABLET PO SCH (08:09)
[2019-01-26] MEDS: CHLORHEXIDINE 0.12% ORAL RINSE 60 ML BOTTLE SWISH/SPIT SCH (08:09)
[2019-01-26] MEDS: FUROSEMIDE 40 MG/4 ML VIAL IV SCH (08:09)
[2019-01-26] MEDS: PANTOPRAZOLE 40 MG TABLET PO SCH (08:09)
[2019-01-26 08:16] LABS: Apearance,Urine CLEAR (Clear); Bilirubin,Urine Negative (Negative); Blood, Urine Negative (Negative); Glucose,Urine (UA) 150 mg/dL (Negative); Ketones,Urine 5 mg/dL (Negative); Mucus,Urine Occasional /LPF (Occasional); Nitrite,Urine Negative (Negative); Protein,Urine Negative; Urine Color Yellow (Yellow); Urine Specific Gravity 1.019 (1.001-1.035); Urine Urobilinogen < 2.0 EU/DL (0.2-1.0); WBC,Urine <1 /HPF (0-6)
[2019-01-26 09:05] LABS: Hematocrit Heart Surgery 26.7 PERCENT (42-52); Hemoglobin Heart Surgery 8.6 G/DL (14.0-18.0); PCO2 Patient Temp Venous 38.7 MM HG; PH Patient Temp Venous 7.449; PO2 Patient Temp Venous 46.2 MM HG; VBG Base Excess 2.9 MEQ/L (0-4); VBG HCO3 26.8 MEQ/L (24-28); VBG Oxygen Saturation 87.7 %; VBG PCO2 42.6 MMHG (41-51); VBG PH 7.419; VBG PO2 52.9 MMHG (17-40)
[2019-01-26 09:06] LABS: Potassium Heart/CVR 6.9 MMOL/L (3.5-5.1)
[2019-01-26] MEDS ORDERED: INSULIN REGULAR 100 UNIT/ML ONE (09:14)
[2019-01-26 09:34] LABS: Hematocrit Heart Surgery 28.8 PERCENT (42-52); Hemoglobin Heart Surgery 9.3 G/DL (14.0-18.0); PCO2 Patient Temp Venous 30.6 MM HG; PH Patient Temp Venous 7.527; PO2 Patient Temp Venous 35.2 MM HG; VBG Base Excess 3.1 MEQ/L (0-4); VBG HCO3 26.9 MEQ/L (24-28); VBG Oxygen Saturation 82.5 %; VBG PCO2 35.4 MMHG (41-51); VBG PH 7.482; VBG PO2 43.4 MMHG (17-40)
[2019-01-26 10:14] LABS: Hematocrit Heart Surgery 29.3 PERCENT (42-52); Hemoglobin Heart Surgery 9.5 G/DL (14.0-18.0); PH Patient Temp Venous 7.477; PO2 Patient Temp Venous 39.6 MM HG; Potassium Heart/CVR 5.1 MMOL/L (3.5-5.1); VBG Base Excess 3.1 MEQ/L (0-4); VBG HCO3 26.8 MEQ/L (24-28); VBG Oxygen Saturation 77.5 %; VBG PH 7.477; VBG PO2 39.6 MMHG (17-40)
[2019-01-26] MEDS ORDERED: MANNITOL 100 GM/500 ML BAG IV ONE (10:40)
[2019-01-26] MEDS ORDERED: HEPARIN 10,000 UNIT/10 ML VIAL ONE (10:40)
[2019-01-26] MEDS ORDERED: PROTAMINE SULFATE 250 MG/25 ML VIAL IV ONE (10:40)
[2019-01-26] MEDS ORDERED: MAGNESIUM SULFATE 10 GM/20 ML VIAL IV ONE (10:40)
[2019-01-26] MEDS ORDERED: methylPREDNISolone SOD SUC 1,000 MG/8 ML VIAL ONE (10:40)
[2019-01-26] MEDS ORDERED: DEXTROSE 5% KCL 20 MEQ 20 MEQ/1,000 ML BAG IV ONE (10:40)
[2019-01-26 10:41] LABS: ABG Base Excess 2.5 MMOL/L (-2.5-2.5); ABG HCO3 26.7 MMOL/L (20-26); ABG PCO2 30.4 MM HG (35-48); ABG PH 7.522 (7.35-7.45); ABG TCO2 22.8 MMOL/L (23-27); Glucose Heart Surgery 292 MG/DL (74-106); Hematocrit Heart Surgery 28.5 PERCENT (42-52); Hemoglobin Heart Surgery 9.2 G/DL (14.0-18.0); Ionized Calcium Arterial 1.19 MMOL/L (1.21-1.46); PCO2 Patient Temp Arterial 30.4 MMHG; PH Patient Temp Arterial 7.522; Patient Temperature 37 CELCIUS; Potassium Heart/CVR 4.4 MMOL/L (3.5-5.1); Sodium Heart/CVR 135 MMOL/L (135-145)
[2019-01-26] MEDS ORDERED: FUROSEMIDE 20 MG/2 ML VIAL ONE (10:41)
[2019-01-26] MEDS ORDERED: PROTAMINE SULFATE 50 MG/5 ML VIAL IV ONE (10:41)
[2019-01-26] MEDS ORDERED: THROMBIN TOPICAL (RECOMBINANT) 5,000 UNIT VIAL TOP ONE (10:57)
[2019-01-26] MEDS: ESMOLOL 2,500 MG/250 ML PREMIX IV SCH ×2 (11:40→14:41)
[2019-01-26] MEDS ORDERED: VECURONIUM 10 MG VIAL IV PRN ×2 (11:51)
[2019-01-26] MEDS ORDERED: NITROPRUSSIDE 100 MG in DEXTROSE 5% 250 ML IV PRN (11:51)
[2019-01-26] MEDS ORDERED: MAGNESIUM SULF RIDER 2 GM in PREMIX 1 EACH IV PRN (11:51)
[2019-01-26] MEDS ORDERED: MIDAZOLAM 2 MG/2 ML VIAL IV PRN (11:51)
[2019-01-26] MEDS ORDERED: ONDANSETRON 4 MG/2 ML VIAL IV PRN (11:51)
[2019-01-26] MEDS ORDERED: MAGNESIUM SULF RIDER 4 GM in PREMIX 1 EACH IV PRN (11:51)
[2019-01-26] MEDS ORDERED: DEXTROSE 50% 25 GM/50 ML SYRINGE IV PRN ×2 (11:51)
[2019-01-26] MEDS ORDERED: MORPHINE 4 MG/1 ML VIAL IV PRN (11:51)
[2019-01-26] MEDS ORDERED: ACETAMINOPHEN 650 MG SUPP RECTAL PRN (11:51)
[2019-01-26] MEDS ORDERED: CALCIUM CHLORIDE 1,000 MG/10 ML SYRINGE IV PRN (11:51)
[2019-01-26] MEDS ORDERED: PHENYLEPHRINE DRIP 40 MG/250 ML PREMIX IV PRN (11:51)
[2019-01-26] MEDS ORDERED: POTASSIUM CHLORIDE RIDER 10 MEQ in PREMIX 1 EACH IV PRN (11:51)
[2019-01-26] MEDS ORDERED: INSULIN REGULAR 100 UNIT/ML IV ONE (11:51)
[2019-01-26] MEDS ORDERED: POTASSIUM CHLORIDE RIDER 20 MEQ in PREMIX 1 EACH IV PRN (11:51)
[2019-01-26] MEDS ORDERED: MIDAZOLAM 10 MG/2 ML VIAL IV PRN (11:51)
[2019-01-26] MEDS ORDERED: SODIUM CHLORIDE 0.45% 1,000 ML IV SCH ×2 (12:00)
[2019-01-26 12:12] LABS: ABG Base Excess 2.3 MMOL/L (-2.5-2.5); ABG HCO3 26.5 MMOL/L (20-26); ABG Oxygen Saturation 98.5 % (95-100); ABG PCO2 41.6 MM HG (35-48); ABG TCO2 24.3 MMOL/L (23-27); Basophils % 0.4 % (0.0-0.8); Eosinophils # 0.1 10*3/uL (0.0-0.87); Eosinophils % 0.6 % (0.00-10.9); Glucose Heart Surgery 297 MG/DL (74-106); Hematocrit 33.1 VOL% (42.0-52.0); Hematocrit Heart Surgery 33.3 PERCENT (42-52); Hemoglobin Heart Surgery 10.8 G/DL (14.0-18.0); Immature Granulocytes % 0.7 %; Immature Granulocytes Absolute 0.08 #; Lymphocytes # 1.3 10*3/uL (1.4-4.0); Lymphocytes % 11.7 % (21.2-54.2); Mean Corpuscular HGB Conc 31.4 GM/DL (32-36); Mean Corpuscular Hemoglobin 28 PG (27-34); Mean Corpuscular Volume 90.4 FL (87-102); Mean Platelet Volume 13.3 FL (9.6-12.0); Monocytes # 0.7 10*3/uL (0.11-0.8); Monocytes % 6.8 % (1.7-12.7); Neutrophils # 8.7 10*3/uL (1.4-7.4); Neutrophils % 79.8 % (38.7-73.9); Potassium Heart/CVR 4.1 MMOL/L (3.5-5.1); Red Blood Count 3.66 MC/CUMM (3.8-5.5); Red Cell Distribution Width 13.4 % (9.3-17.3)
[2019-01-26 12:13] LABS: Hemoglobin 10.4 GM/DL (14.0-18.0); Platelet Count 134 T/CUMM (130-400); White Blood Count 10.9 T/CUMM (4-12)
[2019-01-26 12:19] LABS: INR 1.1; PT Patient Result 11.4 SECS; Partial Thromboplastin Time 29.5 SECS (0-40)
[2019-01-26] MEDS ORDERED: CALCIUM CHLORIDE 1,000 MG/10 ML VIAL IV ONE (12:25)
[2019-01-26] MEDS ORDERED: ETOMIDATE 40 MG/20 ML VIAL IV ONE (12:26)
[2019-01-26] MEDS ORDERED: ePHEDrine 50 MG/ML AMP ONE (12:26)
[2019-01-26] MEDS ORDERED: SEVOFLURANE 1 UNIT/15 MINUTE INH ONE (12:26)
[2019-01-26] MEDS ORDERED: PHENYLEPHRINE 10 MG/1 ML VIAL IV ONE (12:26)
[2019-01-26] MEDS ORDERED: SODIUM CHLORIDE 0.9% 2,000 ML IV ONE (12:27)
[2019-01-26] MEDS ORDERED: PHENYLEPHRINE 1 MG/10 ML SYRINGE IV ONE (12:27)
[2019-01-26] MEDS ORDERED: SODIUM CHLORIDE 0.9% 50 ML IV ONE (12:27)
[2019-01-26] MEDS ORDERED: SODIUM CHLORIDE 0.9% 250 ML IV ONE (12:27)
[2019-01-26] MEDS ORDERED: SUCCINYLCHOLINE 200 MG/10 ML VIAL ONE (12:27)
[2019-01-26] MEDS ORDERED: ROCURONIUM 100 MG/10 ML VIAL IV ONE (12:27)
[2019-01-26] MEDS ORDERED: ESMOLOL 100 MG/10 ML VIAL IV ONE (12:28)
[2019-01-26] MEDS ORDERED: MINERAL OIL/PETROLATUM OPH OINT 3.5 GM TUBE ONE (12:34)
[2019-01-26] MEDS: cefTRIAXone 2,000 MG in SYRINGE 1 EACH IV SCH (12:45)
[2019-01-26 12:54] LABS: Troponin I 3.65 NG/ML (0.00-0.045)
[2019-01-26] MEDS: LACTATED RINGERS 250 ML IV PRN ×7 (12:57→23:01)
[2019-01-26 12:59] LABS: Albumin 2.9 G/DL (3.4-5.0); Bilirubin,Total 0.8 MG/DL (0.2-1.0); Calcium 8.7 MG/DL (8.5-10.1); Osmolality,Calculated 297.4 MOS/KG (273-304); Potassium 4.5 MMOL/L (3.5-5.1); Total Protein 6.2 G/DL (6.4-8.3)
[2019-01-26] MEDS: INSULIN REGULAR DRIP 100 ML IV SCH ×2 (12:59→20:47)
[2019-01-26] MEDS: ALBUMIN 5% 12.5 GM in PREMIX 1 EACH IV PRN ×4 (13:19→19:55)
[2019-01-26 13:20] LABS: ABG Base Excess 2.1 MMOL/L (-2.5-2.5); ABG HCO3 26.3 MMOL/L (20-26); ABG Oxygen Saturation 96.7 % (95-100); ABG PCO2 45.3 MM HG (35-48); ABG PH 7.392 (7.35-7.45); ABG TCO2 24.6 MMOL/L (23-27); Glucose Heart Surgery 306 MG/DL (74-106); Hematocrit Heart Surgery 35.3 PERCENT (42-52); Hemoglobin Heart Surgery 11.5 G/DL (14.0-18.0)
[2019-01-26] MEDS: INSULIN REGULAR 100 UNIT/ML IV PRN ×2 (14:09→18:45)
[2019-01-26] MEDS: ceFAZolin 1,000 MG in SYRINGE 1 EACH IV SCH ×2 (14:28→19:05)
[2019-01-26 15:12] LABS: ABG Base Excess 1.7 MMOL/L (-2.5-2.5); ABG HCO3 25.9 MMOL/L (20-26); ABG Oxygen Saturation 98.2 % (95-100); ABG PCO2 46.9 MM HG (35-48); ABG PH 7.374 (7.35-7.45); ABG TCO2 25.1 MMOL/L (23-27); Glucose Heart Surgery 228 MG/DL (74-106); Hematocrit Heart Surgery 28.9 PERCENT (42-52); Hemoglobin Heart Surgery 9.3 G/DL (14.0-18.0); Potassium Heart/CVR 4.4 MMOL/L (3.5-5.1)
[2019-01-26 16:00] LABS: ABG Base Excess 1.7 MMOL/L (-2.5-2.5); ABG HCO3 25.9 MMOL/L (20-26); ABG Oxygen Saturation 97.1 % (95-100); ABG PCO2 49.5 MM HG (35-48); ABG PH 7.357 (7.35-7.45); ABG PO2 94.2 MM HG (80-95); ABG TCO2 25.6 MMOL/L (23-27); Glucose Heart Surgery 209 MG/DL (74-106); Hematocrit Heart Surgery 28.9 PERCENT (42-52); Hemoglobin Heart Surgery 9.3 G/DL (14.0-18.0); Potassium Heart/CVR 4.5 MMOL/L (3.5-5.1)
[2019-01-26 18:07] LABS: ABG Base Excess 1.1 MMOL/L (-2.5-2.5); ABG HCO3 25.4 MMOL/L (20-26); ABG Oxygen Saturation 96.9 % (95-100); ABG PCO2 56.2 MM HG (35-48); ABG PH 7.313 (7.35-7.45); ABG PO2 97.8 MM HG (80-95); ABG TCO2 25.8 MMOL/L (23-27); Glucose Heart Surgery 165 MG/DL (74-106); Hematocrit Heart Surgery 34.1 PERCENT (42-52); Potassium Heart/CVR 4.8 MMOL/L (3.5-5.1)
[2019-01-26] MEDS: MORPHINE 10 MG/1 ML VIAL IV PRN ×2 (20:52→23:00)
[2019-01-26] MEDS ORDERED: CHLORHEXIDINE 0.12% ORAL RINSE 60 ML BOTTLE SWISH/SPIT SCH (21:00)
[2019-01-26 21:07] LABS: ABG HCO3 26.2 MMOL/L (20-26); ABG Oxygen Saturation 96.7 % (95-100); ABG PCO2 39.4 MM HG (35-48); ABG PH 7.432 (7.35-7.45); ABG PO2 82.3 MM HG (80-95); ABG TCO2 23.9 MMOL/L (23-27); Glucose Heart Surgery 102 MG/DL (74-106); Hematocrit Heart Surgery 30.8 PERCENT (42-52); Potassium Heart/CVR 4.4 MMOL/L (3.5-5.1)
[2019-01-26 21:24] LABS: Troponin I 3.38 NG/ML (0.00-0.045)
[2019-01-27] MEDS: ceFAZolin 1,000 MG in SYRINGE 1 EACH IV SCH ×2 (01:58→07:25)
[2019-01-27 03:03] LABS: ABG Base Excess 1.6 MMOL/L (-2.5-2.5); ABG HCO3 25.8 MMOL/L (20-26); ABG Oxygen Saturation 98.9 % (95-100); ABG PCO2 44.4 MM HG (35-48); ABG PH 7.389 (7.35-7.45); ABG TCO2 24.4 MMOL/L (23-27); Glucose Heart Surgery 130 MG/DL (74-106); Hematocrit Heart Surgery 31.3 PERCENT (42-52); Hemoglobin Heart Surgery 10.1 G/DL (14.0-18.0); Potassium Heart/CVR 4.7 MMOL/L (3.5-5.1)
[2019-01-27 03:23] LABS: Albumin 3.1 G/DL (3.4-5.0); Bilirubin,Direct 0.21 MG/DL (0.0-0.20); Bilirubin,Total 0.6 MG/DL (0.2-1.0); CKMB % 3.8 %; Calcium 8.8 MG/DL (8.5-10.1); Potassium 4.7 MMOL/L (3.5-5.1); Total Protein 6.8 G/DL (6.4-8.3)
[2019-01-27 03:32] LABS: Troponin I 4.66 NG/ML (0.00-0.045)
[2019-01-27 04:29] LABS: ABG Base Excess 0.6 MMOL/L (-2.5-2.5); ABG Oxygen Saturation 96.6 % (95-100); ABG PCO2 51.3 MM HG (35-48); ABG PH 7.332 (7.35-7.45); ABG PO2 94.1 MM HG (80-95); ABG TCO2 24.9 MMOL/L (23-27); Glucose Heart Surgery 155 MG/DL (74-106); Hematocrit Heart Surgery 30.6 PERCENT (42-52); Hemoglobin Heart Surgery 9.9 G/DL (14.0-18.0); Potassium Heart/CVR 5.5 MMOL/L (3.5-5.1)
[2019-01-27] MEDS ORDERED: POTASSIUM CHLORIDE 20 MEQ TABLET PO PRN (08:51)
[2019-01-27] MEDS ORDERED: ACETAMINOPHEN 325 MG TABLET PO PRN (08:51)
[2019-01-27] MEDS ORDERED: ONDANSETRON 4 MG/2 ML VIAL IV PRN (08:51)
[2019-01-27] MEDS ORDERED: DEXTROSE 50% 25 GM/50 ML VIAL IV PRN ×2 (08:51→09:07)
[2019-01-27] MEDS ORDERED: ALUMINUM/MAGNES/SIMETH MAX STR 30 ML UDCUP PO PRN (08:51)
[2019-01-27] MEDS ORDERED: ZALEPLON 5 MG CAPSULE PO PRN (08:51)
[2019-01-27] MEDS ORDERED: MAGNESIUM HYDROXIDE SUSP 30 ML UDCUP PO PRN (08:51)
[2019-01-27] MEDS ORDERED: GLUCAGON 1 MG VIAL IM PRN ×3 (08:51→09:07)
[2019-01-27] MEDS ORDERED: MAGNESIUM SULF RIDER 2 GM in PREMIX 1 EACH IV PRN (08:51)
[2019-01-27] MEDS ORDERED: DEXTROSE 50% 25 GM/50 ML SYRINGE IV PRN (08:51)
[2019-01-27] MEDS ORDERED: MAGNESIUM SULF RIDER 4 GM in PREMIX 1 EACH IV PRN (08:51)
[2019-01-27] MEDS ORDERED: VALSARTAN/HCTZ 160-12.5 MG TABLET PO SCH (09:00)
[2019-01-27] MEDS ORDERED: SODIUM CHLOR 0.45% KCL 20 MEQ 20 MEQ/1,000 ML BAG IV SCH (09:00)
[2019-01-27] MEDS: PANTOPRAZOLE 40 MG TABLET PO SCH (09:16)
[2019-01-27] MEDS: FERROUS SULFATE 325 MG TABLET PO SCH (09:16)
[2019-01-27] MEDS: DOCUSATE SODIUM 100 MG CAPSULE PO SCH (09:16)
[2019-01-27] MEDS: ASPIRIN EC 325 MG TABLET PO SCH (09:17)
[2019-01-27] MEDS: CARVEDILOL 3.125 MG TABLET PO SCH ×2 (09:18→21:39)
[2019-01-27] MEDS: CHLORHEXIDINE 0.12% ORAL RINSE 60 ML BOTTLE SWISH/SPIT SCH ×2 (09:29→21:44)
[2019-01-27] MEDS ORDERED: PROMETHAZINE 25 MG/1 ML VIAL IM PRN (12:31)
[2019-01-27] MEDS: INSULIN REGULAR 100 UNIT/ML SUBCUT SCH ×5 (12:58→21:39)
[2019-01-27] MEDS ORDERED: ERGOCALCIFEROL 50,000 UNIT CAPSULE PO SCH (18:00)
[2019-01-27] MEDS ORDERED: INSULIN GLARGINE 100 UNIT/ML SUBCUT SCH (21:00)
[2019-01-27] MEDS: MORPHINE 4 MG/1 ML VIAL IV PRN (21:39)
[2019-01-28] MEDS: INSULIN REGULAR 100 UNIT/ML SUBCUT SCH ×6 (02:40→20:31)
[2019-01-28 04:30] LABS: Basophils % 0.1 % (0.0-0.8); Hematocrit 29.7 VOL% (42.0-52.0); Hemoglobin 8.8 GM/DL (14.0-18.0); Immature Granulocytes % 0.7 %; Immature Granulocytes Absolute 0.11 #; Lymphocytes # 1.2 10*3/uL (1.4-4.0); Lymphocytes % 8.1 % (21.2-54.2); Mean Corpuscular HGB Conc 29.6 GM/DL (32-36); Mean Corpuscular Hemoglobin 28 PG (27-34); Mean Corpuscular Volume 93.7 FL (87-102); Mean Platelet Volume 14.2 FL (9.6-12.0); Monocytes # 1.4 10*3/uL (0.11-0.8); Monocytes % 9.1 % (1.7-12.7); Neutrophils # 12.3 10*3/uL (1.4-7.4); Platelet Count 112 T/CUMM (130-400); Red Blood Count 3.17 MC/CUMM (3.8-5.5); Red Cell Distribution Width 14.4 % (9.3-17.3)
[2019-01-28 04:58] LABS: Alanine Aminotransferase 41 U/L (16-61); Albumin 2.8 G/DL (3.4-5.0); Alkaline Phosphatase 83 U/L (45-117); Aspartate Amino Transferase 26 U/L (0-37); Bilirubin,Indirect 0.4 MG/DL (0.0-1.0); Blood Urea Nitrogen 47 MG/DL (7-18); Calcium 8.2 MG/DL (8.5-10.1); Glucose 270 MG/DL (74-106); Osmolality,Calculated 296.7 MOS/KG (273-304); Potassium 5.5 MMOL/L (3.5-5.1); Sodium 138 MMOL/L (136-145); Total Protein 6.5 G/DL (6.4-8.3)
[2019-01-28] MEDS ORDERED: FUROSEMIDE 40 MG/4 ML VIAL IV ONE (06:00)
[2019-01-28] MEDS: CHLORHEXIDINE 0.12% ORAL RINSE 60 ML BOTTLE SWISH/SPIT SCH ×2 (09:50→20:32)
[2019-01-28] MEDS: FERROUS SULFATE 325 MG TABLET PO SCH (09:54)
[2019-01-28] MEDS: ROSUVASTATIN 20 MG TABLET PO SCH (09:54)
[2019-01-28] MEDS: PANTOPRAZOLE 40 MG TABLET PO SCH (09:55)
[2019-01-28] MEDS: DOCUSATE SODIUM 100 MG CAPSULE PO SCH (09:55)
[2019-01-28] MEDS: ASPIRIN EC 325 MG TABLET PO SCH (09:55)
[2019-01-28] MEDS: CARVEDILOL 3.125 MG TABLET PO SCH ×2 (09:56→20:31)
[2019-01-28] MEDS ORDERED: INSULIN GLARGINE 100 UNIT/ML SUBCUT SCH ×2 (10:46→17:59)
[2019-01-28] MEDS: MORPHINE 4 MG/1 ML VIAL IV PRN (20:28)
[2019-01-29] MEDS: INSULIN REGULAR 100 UNIT/ML SUBCUT SCH ×5 (01:20→16:55)
[2019-01-29] MEDS: MORPHINE 4 MG/1 ML VIAL IV PRN (03:00)
[2019-01-29 05:08] LABS: Basophils % 0.2 % (0.0-0.8); Eosinophils % 0.1 % (0.00-10.9); Hematocrit 26.9 VOL% (42.0-52.0); Hemoglobin 8.3 GM/DL (14.0-18.0); Immature Granulocytes % 0.5 %; Immature Granulocytes Absolute 0.05 #; Lymphocytes # 1.9 10*3/uL (1.4-4.0); Lymphocytes % 18.3 % (21.2-54.2); Mean Corpuscular HGB Conc 30.9 GM/DL (32-36); Mean Corpuscular Hemoglobin 29 PG (27-34); Mean Corpuscular Volume 93.7 FL (87-102); Mean Platelet Volume 13.1 FL (9.6-12.0); Monocytes # 1.1 10*3/uL (0.11-0.8); Monocytes % 10.1 % (1.7-12.7); Neutrophils # 7.3 10*3/uL (1.4-7.4); Neutrophils % 70.8 % (38.7-73.9); Platelet Count 95 T/CUMM (130-400); Red Blood Count 2.87 MC/CUMM (3.8-5.5); Red Cell Distribution Width 14.4 % (9.3-17.3); White Blood Count 10.4 T/CUMM (4-12)
[2019-01-29 05:35] LABS: Alanine Aminotransferase 43 U/L (16-61); Albumin 2.8 G/DL (3.4-5.0); Alkaline Phosphatase 90 U/L (45-117); Aspartate Amino Transferase 27 U/L (0-37); Bilirubin,Indirect 0.8 MG/DL (0.0-1.0); Blood Urea Nitrogen 50 MG/DL (7-18); Glucose 172 MG/DL (74-106); Potassium 3.9 MMOL/L (3.5-5.1); Sodium 143 MMOL/L (136-145); Total Protein 6.7 G/DL (6.4-8.3)
[2019-01-29 05:36] LABS: Atypical Lymphocytes Few; Lymphocytes 21 % (20-55); Segmented Neutrophils 71 % (50-85); Total Cells Counted 100
[2019-01-29 05:37] LABS: Hypochromasia 1+
[2019-01-29 05:38] LABS: Microcytosis Slight
[2019-01-29] MEDS ORDERED: INSULIN LISPRO 100 UNIT/ML SUBCUT SCH (08:00)
[2019-01-29] MEDS: ROSUVASTATIN 20 MG TABLET PO SCH (08:48)
[2019-01-29] MEDS: DOCUSATE SODIUM 100 MG CAPSULE PO SCH (08:48)
[2019-01-29] MEDS: CARVEDILOL 3.125 MG TABLET PO SCH ×2 (08:49→21:35)
[2019-01-29] MEDS: PANTOPRAZOLE 40 MG TABLET PO SCH (08:49)
[2019-01-29] MEDS: FERROUS SULFATE 325 MG TABLET PO SCH (08:49)
[2019-01-29] MEDS: ASPIRIN EC 325 MG TABLET PO SCH (08:49)
[2019-01-29] MEDS: CHLORHEXIDINE 0.12% ORAL RINSE 60 ML BOTTLE SWISH/SPIT SCH ×2 (08:50→21:35)
[2019-01-29] MEDS ORDERED: GLUCAGON 1 MG VIAL IM PRN (10:33)
[2019-01-29] MEDS ORDERED: DEXTROSE 50% 25 GM/50 ML SYRINGE IV PRN (10:33)
[2019-01-29] MEDS: INSULIN NPH 100 UNIT/ML SUBCUT SCH (16:55)
[2019-01-29] MEDS: oxyCODONE/ACETAMINOPHEN 5-325 MG TABLET PO PRN (21:34)
[2019-01-30 06:54] LABS: Basophils % 0.3 % (0.0-0.8); Eosinophils # 0.1 10*3/uL (0.0-0.87); Eosinophils % 0.6 % (0.00-10.9); Hematocrit 28.4 VOL% (42.0-52.0); Hemoglobin 8.6 GM/DL (14.0-18.0); Immature Granulocytes % 0.2 %; Immature Granulocytes Absolute 0.02 #; Lymphocytes # 1.9 10*3/uL (1.4-4.0); Lymphocytes % 21.5 % (21.2-54.2); Mean Corpuscular HGB Conc 30.3 GM/DL (32-36); Mean Corpuscular Hemoglobin 29 PG (27-34); Mean Corpuscular Volume 95.6 FL (87-102); Mean Platelet Volume 13.2 FL (9.6-12.0); Monocytes # 0.8 10*3/uL (0.11-0.8); Monocytes % 8.4 % (1.7-12.7); Neutrophils # 6.2 10*3/uL (1.4-7.4); Platelet Count 149 T/CUMM (130-400); Red Blood Count 2.97 MC/CUMM (3.8-5.5); Red Cell Distribution Width 14.4 % (9.3-17.3)
[2019-01-30 07:25] LABS: Calcium 8.3 MG/DL (8.5-10.1); Osmolality,Calculated 300.3 MOS/KG (273-304); Potassium 4.7 MMOL/L (3.5-5.1)
[2019-01-30] MEDS: INSULIN NPH 100 UNIT/ML SUBCUT SCH ×2 (09:53→18:16)
[2019-01-30] MEDS: INSULIN REGULAR 100 UNIT/ML SUBCUT SCH ×3 (09:55→18:19)
[2019-01-30] MEDS: ASPIRIN EC 325 MG TABLET PO SCH (09:56)
[2019-01-30] MEDS: CARVEDILOL 3.125 MG TABLET PO SCH ×2 (09:56→20:46)
[2019-01-30] MEDS: FERROUS SULFATE 325 MG TABLET PO SCH (09:56)
[2019-01-30] MEDS: DOCUSATE SODIUM 100 MG CAPSULE PO SCH (09:56)
[2019-01-30] MEDS: PANTOPRAZOLE 40 MG TABLET PO SCH (09:56)
[2019-01-30] MEDS: CHLORHEXIDINE 0.12% ORAL RINSE 60 ML BOTTLE SWISH/SPIT SCH ×2 (10:43→20:48)
[2019-01-30] MEDS: ROSUVASTATIN 20 MG TABLET PO SCH (20:46)
[2019-01-30] MEDS: oxyCODONE/ACETAMINOPHEN 5-325 MG TABLET PO PRN (20:46)
[2019-01-31 04:47] LABS: Basophils % 0.2 % (0.0-0.8); Eosinophils # 0.1 10*3/uL (0.0-0.87); Eosinophils % 1.5 % (0.00-10.9); Hematocrit 27.4 VOL% (42.0-52.0); Hemoglobin 8.4 GM/DL (14.0-18.0); Immature Granulocytes % 0.4 %; Immature Granulocytes Absolute 0.04 #; Lymphocytes # 1.9 10*3/uL (1.4-4.0); Lymphocytes % 20.6 % (21.2-54.2); Mean Corpuscular HGB Conc 30.7 GM/DL (32-36); Mean Corpuscular Hemoglobin 29 PG (27-34); Mean Corpuscular Volume 93.5 FL (87-102); Mean Platelet Volume 12.9 FL (9.6-12.0); Monocytes # 0.7 10*3/uL (0.11-0.8); Monocytes % 7.1 % (1.7-12.7); Neutrophils # 6.6 10*3/uL (1.4-7.4); Neutrophils % 70.2 % (38.7-73.9); Platelet Count 181 T/CUMM (130-400); Red Blood Count 2.93 MC/CUMM (3.8-5.5); Red Cell Distribution Width 14.5 % (9.3-17.3); White Blood Count 9.4 T/CUMM (4-12)
[2019-01-31 05:05] LABS: Alanine Aminotransferase 58 U/L (16-61); Albumin 2.7 G/DL (3.4-5.0); Alkaline Phosphatase 120 U/L (45-117); Aspartate Amino Transferase 29 U/L (0-37); Bilirubin,Indirect 0.6 MG/DL (0.0-1.0); Blood Urea Nitrogen 38 MG/DL (7-18); Calcium 8.1 MG/DL (8.5-10.1); Glucose 274 MG/DL (74-106); Osmolality,Calculated 299.3 MOS/KG (273-304); Potassium 4.9 MMOL/L (3.5-5.1); Sodium 141 MMOL/L (136-145); Total Protein 6.8 G/DL (6.4-8.3)
[2019-01-31 05:06] LABS: Troponin I 0.379 NG/ML (0.00-0.045)
[2019-01-31] MEDS: INSULIN NPH 100 UNIT/ML SUBCUT SCH ×2 (08:49→17:18)
[2019-01-31] MEDS: PANTOPRAZOLE 40 MG TABLET PO SCH (08:50)
[2019-01-31] MEDS: CARVEDILOL 3.125 MG TABLET PO SCH ×2 (08:50→20:04)
[2019-01-31] MEDS: CHLORHEXIDINE 0.12% ORAL RINSE 60 ML BOTTLE SWISH/SPIT SCH ×2 (08:50→20:04)
[2019-01-31] MEDS: ASPIRIN EC 325 MG TABLET PO SCH (08:50)
[2019-01-31] MEDS: INSULIN REGULAR 100 UNIT/ML SUBCUT SCH ×4 (08:50→17:18)
[2019-01-31] MEDS: DOCUSATE SODIUM 100 MG CAPSULE PO SCH (08:50)
[2019-01-31] MEDS: FERROUS SULFATE 325 MG TABLET PO SCH (08:50)
[2019-01-31] MEDS ORDERED: FUROSEMIDE 20 MG/2 ML VIAL IV ONE (09:24)
[2019-01-31] MEDS: oxyCODONE/ACETAMINOPHEN 5-325 MG TABLET PO PRN (20:04)
[2019-01-31] MEDS: ROSUVASTATIN 20 MG TABLET PO SCH (20:04)
[2019-02-01 05:27] LABS: Alanine Aminotransferase 57 U/L (16-61); Albumin 2.7 G/DL (3.4-5.0); Alkaline Phosphatase 127 U/L (45-117); Aspartate Amino Transferase 24 U/L (0-37); Bilirubin,Indirect 0.4 MG/DL (0.0-1.0); Blood Urea Nitrogen 33 MG/DL (7-18); Calcium 8.3 MG/DL (8.5-10.1); Glucose 277 MG/DL (74-106); Osmolality,Calculated 295.4 MOS/KG (273-304); Potassium 4.9 MMOL/L (3.5-5.1); Sodium 140 MMOL/L (136-145); Total Protein 7.2 G/DL (6.4-8.3)
[2019-02-01 05:28] LABS: Basophils % 0.5 % (0.0-0.8); Eosinophils # 0.1 10*3/uL (0.0-0.87); Eosinophils % 1.6 % (0.00-10.9); Hemoglobin 9.2 GM/DL (14.0-18.0); Immature Granulocytes % 0.5 %; Immature Granulocytes Absolute 0.04 #; Lymphocytes # 2.2 10*3/uL (1.4-4.0); Lymphocytes % 24.5 % (21.2-54.2); Mean Corpuscular HGB Conc 30.7 GM/DL (32-36); Mean Corpuscular Hemoglobin 29 PG (27-34); Mean Corpuscular Volume 93.8 FL (87-102); Mean Platelet Volume 13.4 FL (9.6-12.0); Monocytes # 0.7 10*3/uL (0.11-0.8); Monocytes % 7.6 % (1.7-12.7); Neutrophils # 5.7 10*3/uL (1.4-7.4); Neutrophils % 65.3 % (38.7-73.9); Platelet Count 117 T/CUMM (130-400); Red Cell Distribution Width 14.4 % (9.3-17.3); Troponin I 0.213 NG/ML (0.00-0.045); White Blood Count 8.8 T/CUMM (4-12)
[2019-02-01] MEDS: FERROUS SULFATE 325 MG TABLET PO SCH (09:13)
[2019-02-01] MEDS: CARVEDILOL 3.125 MG TABLET PO SCH ×2 (09:13→21:11)
[2019-02-01] MEDS: PANTOPRAZOLE 40 MG TABLET PO SCH (09:13)
[2019-02-01] MEDS: ASPIRIN EC 325 MG TABLET PO SCH (09:14)
[2019-02-01] MEDS: DOCUSATE SODIUM 100 MG CAPSULE PO SCH (09:14)
[2019-02-01] MEDS: INSULIN REGULAR 100 UNIT/ML SUBCUT SCH ×3 (09:14→17:24)
[2019-02-01] MEDS: INSULIN NPH 100 UNIT/ML SUBCUT SCH ×2 (09:14→17:24)
[2019-02-01] MEDS: CHLORHEXIDINE 0.12% ORAL RINSE 60 ML BOTTLE SWISH/SPIT SCH ×2 (10:58→21:12)
[2019-02-01] MEDS: ROSUVASTATIN 20 MG TABLET PO SCH (21:11)
[2019-02-02 05:01] LABS: Basophils % 0.5 % (0.0-0.8); Eosinophils # 0.1 10*3/uL (0.0-0.87); Eosinophils % 1.1 % (0.00-10.9); Hematocrit 27.5 VOL% (42.0-52.0); Hemoglobin 8.6 GM/DL (14.0-18.0); Immature Granulocytes % 0.5 %; Immature Granulocytes Absolute 0.04 #; Lymphocytes % 22.1 % (21.2-54.2); Mean Corpuscular HGB Conc 31.3 GM/DL (32-36); Mean Corpuscular Hemoglobin 29 PG (27-34); Mean Corpuscular Volume 93.2 FL (87-102); Mean Platelet Volume 13.2 FL (9.6-12.0); Monocytes # 0.7 10*3/uL (0.11-0.8); Monocytes % 7.8 % (1.7-12.7); Platelet Count 203 T/CUMM (130-400); Red Blood Count 2.95 MC/CUMM (3.8-5.5); Red Cell Distribution Width 14.4 % (9.3-17.3); White Blood Count 8.8 T/CUMM (4-12)
[2019-02-02 05:16] LABS: Calcium 8.4 MG/DL (8.5-10.1); Osmolality,Calculated 292.4 MOS/KG (273-304); Potassium 4.6 MMOL/L (3.5-5.1)
[2019-02-02] MEDS: INSULIN NPH 100 UNIT/ML SUBCUT SCH (08:10)
[2019-02-02] MEDS: INSULIN REGULAR 100 UNIT/ML SUBCUT SCH ×2 (08:10→09:05)
[2019-02-02] MEDS: ASPIRIN EC 325 MG TABLET PO SCH (09:05)
[2019-02-02] MEDS: DOCUSATE SODIUM 100 MG CAPSULE PO SCH (09:05)
[2019-02-02] MEDS: FERROUS SULFATE 325 MG TABLET PO SCH (09:05)
[2019-02-02] MEDS: PANTOPRAZOLE 40 MG TABLET PO SCH (09:05)
[2019-02-02] MEDS: CARVEDILOL 3.125 MG TABLET PO SCH (09:06)
[2019-02-02] MEDS: CHLORHEXIDINE 0.12% ORAL RINSE 60 ML BOTTLE SWISH/SPIT SCH (09:06)
[2019-02-02 11:55] VITALS: BP 128/78
== END 2019-02-02 11:55 | disposition home health service (06) | DRG 233 ==
LOC: EDUNIT# → EDBD → N.ED 21:38 → N.EDINP 01-19 00:11 → SUATTDRO 01-19 00:11 → N.ICU 01-19 00:39 → N.TELEN 01-21 22:09 → N.CVR 01-26 11:01 → N.TELES 01-27 10:25
PROVIDERS: ADMIT Internal Medicine; ATTEND Hospitalist
PROC: CLCCHCL (ICD-10-PCS; 2019-01-23 09:15)